=== PATIENT | male | born 1950 | race Two or more races ===

== ENCOUNTER 2016-10-17 09:14 | Emergency (ER) | payer OTHER ==
[2016-10-17 09:19] VITALS: BP 198/88; BMI 31.6
[2016-10-17] MEDS ORDERED: LEVSIN/MAALOX/LIDOC VISC ONE (10:11)
[2016-10-17] MEDS ORDERED: XYLOCAINE 1% and EPINEPHRINE 1:100,000 ONE (10:26)
--- NOTE | 2016-10-17 10:47 | DR.LACERAT ---
HPI - Time Seen Time seen: 10:40 - Primary Care Physician Primary Care Physician: NFD - Complaints Chief Complaint Doctors Comments: History as stated Chief Complaint:: PT WAS AT WORK AND HE HAS A PIECE OF METAL AND HE CUT HIS LEFT HAND .... Self Treatment fo Chief Complaint: PRESSURE BANDAGE ON WITH BLEEDING CONTROLLED .. - Source History Provided: Patient - Mode of Arrival Mode of Arrival: Ambulatory - Timing Onset of Chief Complaint: 10/17/16 PMH - PMH Past Medical History: No Past Surgical History: No - Family History History of Family Medical Conditions: No - Social History Does patient currently use any type of tobacco product: No Have you used tobacco products in the last 12 months: No Type of Tobacco Use: None Does any household member use tobacco: No Alcohol Use: None Do you use any recreational Drugs:: No Lives With: Family Lives Where: Home - infectious screening In the last 2 months have you had wt loss of >10#?: NO Have you had fever, night sweats or hemotysis?: No Have you traveled outside the country in the last 6 months?: No Isolation: Standard ROS - Review of Systems Constitutional: No Symptoms Reported Eyes: No Symptoms Reported ENTM: No Symptoms Reported Respiratoy: No Symptoms Reported Cardiovascular: No Symptoms Reported Gastrointestinal/Abdominal: No Symptoms Reported Genitourinary: No Symptoms Reported Neurological: No Symptoms Reported Musculoskeletal: No Symptoms Reported Integumentary: No Symptoms Reported Hematologic/Lymphatic: No Symptoms Reported Endocrine: No Symptoms Reported Psychiatric: No Symptoms Reported All Other Systems: Reviewed and Negative PE - Vital Signs Vitals: Temperature 97.7 F Pulse Rate 62 Respiratory Rate 22 Blood Pressure 198/88 O2 Sat by Pulse Oximetry 97 - General Limitations: Language Barrier General Appearance: Alert, In No Apparent Distress - Head Head Exam: Normal Inspection, Atraumatic - Eyes Eye exam: Normal Appearance, PERRL, EOMI - ENT ENT Exam: Normal Exam - Neck Neck Exam: Normal Inspection, Full ROM - Chest Chest Inspection: Normal Inspection - Respiratory Respiratory Exam: Normal Lung Sounds Bilat Respiratory Exam: Bilateral Clear to Auscultation - Cardiovascular Cardiovascular Exam: Regular Rate, Normal Rhythm - Abdominal Exam Abdominal Exam: Normal Inspection Abdominal Tenderness: negative: RUQ, RLQ, LUQ, LLQ, Epigastrium, Suprapubic, Diffuse, Mild, Moderate, Severe, Other - Extremities Extremities Exam: Other (digit 3 of left hand with a 3cm superficial laceration) - Back Back Exam: Normal Inspection - Neurologic Neurological Exam: Alert, Oriented X3, CN II-XII Intact - Psychiatric Psychiatric Exam: Normal Affect - Skin Skin Exam: Warm, Dry Type of Lesion: Rash Distribution: Generalized Course - Reevaluation 1st: Improved Procedures - Laceration/Wound Repair 4th Digit Wound Length (cm): 3 Wound's Depth, Shape: Superficial Wound Explored: clean Betadine Prep?: Yes Anesthesia: 1% Lidocaine w/ Epi Wound Repaired With: sutures Suture Size/Type: 4:0, Ethilion Layer Closure?: No Number Deep Layer Sutures: 9 Sterile Dressing Applied?: Yes - Diagnosis Discharge Problem: Finger laceration Qualifiers: Encounter type: initial encounter Qualified Code(s): S61.219A - Laceration without foreign body of unspecified finger without damage to nail, initial encounter - Discharge Plan Condition: Stable - Follow ups/Referrals Follow ups/Referrals: NFD,None [Primary Care Provider] - 3 days - Instructions
[2016-10-17] MEDS ORDERED: ADACEL TDaP IM ONE ×2 (11:04→11:08)
== END 2016-10-17 11:36 | disposition home or self-care (01) ==
LOC: ER 09:14
PROC: 0XQK0ZZ Repair Left Hand, Open Approach (ICD-10-PCS; principal; 2016-10-17)
DX: S61.219A Laceration without foreign body of unspecified finger without damage to nail, initial encounter (principal); W45.8XXA Other foreign body or object entering through skin, initial encounter; Y92.69 Other specified industrial and construction area as the place of occurrence of the external cause
CPT/HCPCS: 12002; 90471; 96372; 99282; J2001